=== PATIENT | female | born 1990 | race Two or more races ===

== ENCOUNTER → 2016-11-16 | Outpatient (CLI) | payer BC ==
[~2016-11-16] MED LIST: Iopamidol 612 MG/ML 50 ML SDV IUTERINE STA
--- NOTE | 2016-11-16 14:39 | US ---
EXAMINATION: Hysterosalpingogram. HISTORY: Infertility. Evaluate for tubal patency. PROCEDURE/FINDINGS: Written informed consent was obtained from the patient. Perineum was prepped wit h Betadine and after placement of vaginal speculum, the cervix was prepped with Betadine. A 5 Maltese catheter was placed and after inflation of the balloon, 10 cc of contrast was injected until cornua l regions are filled and multiple views of the pelvis are obtained. The uterine cavity is normal in configuration. No suspicious filling defects are seen. The right and left fallopian tubes are patent and spillage of contrast is noted into peritoneal cavi ty bilaterally. IMPRESSION: Patent fallopian tubes bilaterally.
== END | disposition home or self-care (01) ==
LOC: MW.DI 13:07
PROVIDERS: ATTEND Obstetrics & Gynecology
DX: Z31.49 Encounter for other procreative investigation and testing (principal)
CPT/HCPCS: 58340; 74740; Q9967

== ENCOUNTER 2017-09-30 11:13 | Inpatient (IN) | payer BC ==
[2017-09-30] MEDS ORDERED: Sodium Chloride 0.9% 10 ML Syringe FLUSH PRN (12:35)
[2017-09-30] MEDS ORDERED: Methylergonovine 0.2 MG/1 ML Amp IM PRN (12:35)
[2017-09-30] MEDS ORDERED: Water For Irrigation,Sterile 1,000 ML Container IRR PRN (12:35)
[2017-09-30] MEDS ORDERED: Carboprost Tromethamine 250 MCG/1 ML Amp IM PRN ×2 (12:35→23:06)
[2017-09-30] MEDS ORDERED: Misoprostol 200 MCG Tab PO PRN (12:35)
[2017-09-30] MEDS ORDERED: Lidocaine 1% 50 ML MDV INJECT PRN (12:35)
[2017-09-30] MEDS ORDERED: Sodium Chloride 0.9% 2.5 ML Syringe FLUSH PRN (12:35)
[2017-09-30] MEDS ORDERED: Magnesium Sulfate/Water 4 GM in Premix Bag 1 BAG IV ONE (12:41)
[2017-09-30] MEDS ORDERED: Calcium Gluconate 10% 1 GM/10 ML SDV IV PRN (12:41)
[2017-09-30] MEDS ORDERED: Oxytocin/0.9 % Sodium Chloride 30 UNIT/500 ML BAG IV SCH ×2 (12:45→13:00)
[2017-09-30] MEDS ORDERED: Magnesium Sulfate/Water 40 GM/1,000 ML BAG IV SCH (12:45)
[2017-09-30] MEDS: Lactated Ringers 1,000 ML IV SCH ×2 (12:45→15:36)
[2017-09-30] MEDS ORDERED: Terbutaline 1 MG/ML SDV SUBCUT PRN (12:49)
[2017-09-30 13:26] LABS: CHLORIDE,CL 106 mmol/L (98-110); SODIUM,NA 135 mmol/L (136-146)
[2017-09-30] MEDS ORDERED: Ropivacaine 100 ML ONE (15:15)
[2017-09-30] MEDS ORDERED: fentaNYL 100 MCG/2 ML SDV ONE (15:15)
--- NOTE | 2017-09-30 15:48 | PCM.PREANE ---
Preanesthetic Assessment - Anesthesia/Transfusion/Family Hx Anesthesia History: No Prior Anesthesia Family History of Anesthesia Reaction: No Transfusion History: No Prior Transfusion(s) - Review of Systems General: No Symptoms Pulmonary: No Symptoms Cardiovascular: No Symptoms Gastrointestinal: No Symptoms Neurological: No Symptoms Other: Reports: None - Physical Assessment NPO Status Date: 09/30/17 NPO Status Time: 12:00 Height: 5 ft 4.75 in Weight: 216 lb 12.8 oz ASA Class: 2 Mental Status: Alert & Oriented x3 Airway Class: Mallampati = 2 Dentition: Reports: Normal Dentition Thyro-Mental Finger Breadths: 3 Mouth Opening Finger Breadths: 3 Lungs: Clear to Auscultation, Normal Respiratory Effort - Lab Values: Laboratory Last Values WBC 10.00 K/uL (4.0-11.0) 09/30/17 12:45 RBC 4.39 M/uL (4.30-5.90) 09/30/17 12:45 Hgb 14.2 g/dL (12.0-16.0) 09/30/17 12:45 Hct 40.0 % (36.0-46.0) 09/30/17 12:45 MCV 91.1 fL (80.0-98.0) 09/30/17 12:45 MCH 32.3 pg (27.0-32.0) H 09/30/17 12:45 MCHC 35.5 g/dL (31.0-37.0) 09/30/17 12:45 RDW Std Deviation 44.2 fl (28.0-62.0) 09/30/17 12:45 RDW Coeff of Tessa 14 % (11.0-15.0) 09/30/17 12:45 Plt Count 165 K/uL (150-400) 09/30/17 12:45 MPV 10.60 fL (7.40-12.00) 09/30/17 12:45 Nucleated RBC % 0.0 /100WBC 09/30/17 12:45 Nucleated RBCs # 0 K/uL 09/30/17 12:45 Sodium 135 mmol/L (136-146) L 09/30/17 12:45 Potassium 4.2 mmol/L (3.5-5.1) 09/30/17 12:45 Chloride 106 mmol/L (98-110) 09/30/17 12:45 Carbon Dioxide 18 mmol/L (21-31) L 09/30/17 12:45 BUN 12 mg/dL (6.0-23.0) 09/30/17 12:45 Creatinine 0.8 mg/dL (0.6-1.5) 09/30/17 12:45 Est Cr Clr Drug Dosing 94.09 mL/min 09/30/17 12:45 Estimated GFR (MDRD) > 60.0 ml/min 09/30/17 12:45 Glucose 105 mg/dL (60-110) 09/30/17 12:45 Uric Acid 6.6 mg/dL (2.1-6.2) H 09/30/17 12:45 Calcium 9.2 mg/dL (8.8-10.8) 09/30/17 12:45 Total Bilirubin 0.3 mg/dL (0.1-1.5) 09/30/17 12:45 AST 17 IU/L (5-40) 09/30/17 12:45 ALT 13 IU/L (8-54) 09/30/17 12:45 Alkaline Phosphatase 125 (40-150) 09/30/17 12:45 Total Protein 6.2 g/dL (6.0-8.0) 09/30/17 12:45 Albumin 3.6 g/dL (3.5-5.0) 09/30/17 12:45 Globulin 2.6 g/dL (2.0-3.5) 09/30/17 12:45 Albumin/Globulin Ratio 1.4 (1.3-2.8) 09/30/17 12:45 Blood Type O POSITIVE 09/30/17 12:45 Antibody Screen NEGATIVE 09/30/17 12:45 - Allergies Allergies/Adverse Reactions: Allergies Allergy/AdvReac Type Severity Reaction Status Date / Time No Known Allergies Allergy Verified 10/28/14 14:39 - Acknowledgements Anesthesia Type Planned: Epidural Pt an Appropriate Candidate for the Planned Anesthesia: Yes Alternatives and Risks of Anesthesia Discussed w Pt/Guardian: Yes Pt/Guardian Understands and Agrees with Anesthesia Plan: Yes Additional Comments: obtained informed consent, used sterile technique, see anesthesia record PreAnesthesia Questionnaire - Past Health History Medical/Surgical History: Denies Medical/Surgical History Cardiovascular History: Reports: Hypertension Genitourinary History: Reports: STD 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 [No Known Home Meds] 10/28/14 [History] - CURRENT (IN HOUSE) MEDS Current Meds: Current Medications Calcium Gluconate (Calcium Gluconate) 1 gm IV ASDIRECTED PRN PRN Reason: respiratory distress Carboprost Tromethamine (Hemabate Ds) 250 mcg IM ASDIRECTED PRN PRN Reason: Post Hemorrhage Oxytocin/Sodium Chloride (Oxytocin 30 Unit/500 Ml-Ns) 30 unit in 500 mls @ 999 mls/hr IV TITRATE KIM Magnesium Sulfate (Magnesium Sulfate 40 Gm In Water 1000 Ml) 40 gm in 1,000 mls @ 25 mls/hr IV ASDIRECTED KIM; 1 GM/HR PRN Reason: Protocol Last Admin: 09/30/17 13:57 Dose: 1 gm/hr, 25 mls/hr Oxytocin/Sodium Chloride (Oxytocin 30 Unit/500 Ml-Ns) 30 unit in 500 mls @ 2 mls/hr IV TITRATE KIM; 2 MUNITS/MIN PRN Reason: Protocol Last Titration: 09/30/17 14:39 Dose: 4 munits/min, 4 mls/hr Lactated Ringer's (Ringers, Lactated) 1,000 mls @ 10 mls/hr IV ASDIRECTED KIM Last Admin: 09/30/17 15:36 Dose: 50 mls/hr Lidocaine HCl (Xylocaine 1%) 50 ml INJECT .ONCE PRN PRN Reason: Laceration repair Methylergonovine Maleate (Methergine) 0.2 mg IM ASDIRECTED PRN PRN Reason: Post Hemorrhage Misoprostol (Cytotec) 200 mcg PO .ONCE PRN PRN Reason: Post Hemorrhage Sodium Chloride (Saline Flush) 10 ml FLUSH ASDIRECTED PRN PRN Reason: Keep Vein Open Sodium Chloride (Saline Flush) 2.5 ml FLUSH ASDIRECTED PRN PRN Reason: Keep Vein Open Sterile Water (Sterile Water For Irrigation) 1,000 ml IRR ASDIRECTED PRN PRN Reason: delivery Terbutaline Sulfate (Brethine) 0.25 mg SUBCUT ASDIRECTED PRN PRN Reason: Tacysystole Discontinued Medications Fentanyl (Sublimaze) Confirm Administered Dose 100 mcg .ROUTE .STK-MED ONE Stop: 09/30/17 15:16 Magnesium Sulfate 4 gm/ Premix 100 mls @ 300 mls/hr IV .BOLUS ONE Stop: 09/30/17 13:00 Last Admin: 09/30/17 13:33 Dose: 300 mls/hr Ropivacaine (Naropin 0.2%) Confirm Administered Dose 100 mls @ as directed .ROUTE .STK-MED ONE Stop: 09/30/17 15:16
[2017-09-30] MEDS ORDERED: Acetaminophen 500 MG Tab ONE (22:56)
[2017-09-30] MEDS ORDERED: Ondansetron 4 MG/2 ML SDV IVPUSH PRN (23:00)
[2017-09-30] MEDS ORDERED: Ondansetron 4 MG/2 ML SDV ONE (23:03)
[2017-09-30] MEDS: Acetaminophen 500 MG Tab PO PRN (23:05)
[2017-09-30] MEDS ORDERED: oxyCODONE 5 MG Tab PO PRN (23:06)
[2017-09-30] MEDS ORDERED: Docusate Sodium 100 MG Cap PO PRN (23:06)
[2017-09-30] MEDS ORDERED: Lanolin 100% Cream 7 GM Tube TOP PRN (23:06)
[2017-09-30] MEDS ORDERED: Ibuprofen 800 MG Tab PO PRN (23:06)
[2017-09-30] MEDS ORDERED: Witch Hazel Medicated Pads 40/Jar TOP PRN (23:06)
[2017-09-30] MEDS ORDERED: Bisacodyl 10 MG Supp RECTAL PRN (23:06)
[2017-09-30] MEDS ORDERED: Benzocaine/Menthol 20%-0.5% Spray 78 GM Cannister TOP PRN (23:06)
[2017-10-01] MEDS ORDERED: Ondansetron 4 MG/2 ML SDV ONE (03:40)
[2017-10-01] MEDS: Acetaminophen 500 MG Tab PO PRN (03:48)
--- NOTE | 2017-10-01 05:02 | OR ---
SURGEON: Rylie Park M.D. DATE OF PROCEDURE: 09/30/2017 PREOPERATIVE DIAGNOSIS: Thirty nine week intrauterine , mild preeclampsia. POSTOPERATIVE DIAGNOSIS: Thirty nine week intrauterine , mild preeclampsia. PROCEDURE: Magnesium for seizure prophylaxis, Pitocin induction of labor, term spontaneous vaginal delivery, repair of left vaginal laceration. ANESTHESIA: Epidural. ESTIMATED BLOOD LOSS: Less than 300 mL. FINDINGS: Live born male, score are 9 and 9, weight is pending at the time of dictation. Placenta spontaneous, Schultze intact, with 3 vessels. There was a left vaginal laceration that was repaired. COMPLICATIONS: None known. DISPOSITION: Mother and baby are in LDRP in good condition. BRIEF INDICATION: This is a 26-year-old female, she is G1, P0. She presents at 39 weeks' gestation. Initially in the clinic, she was noted to have borderline blood pressures as well as 3+ protein on urinalysis. Her uric acid was elevated. Her other preeclamptic labs were normal. She presented to Labor and delivery initially at 3 cm dilatation for induction of labor. She was started on magnesium for seizure prophylaxis as well as Pitocin. Artificial rupture of membranes was performed. White meconium was noted and she received an epidural for pain control. Intrauterine pressure catheter was placed and she progressed to complete. DESCRIPTION OF PROCEDURE: With the patient in dorsal lithotomy position, she pushed over a 45-minute time period to a 5+ station, at which time the head was delivered spontaneously and atraumatically over the perineum with support. The was deep suctioned by nose and mouth and the remainder of the infant's body was delivered without difficulty and the was handed to the mother in the presence of the nurse attending delivery. The was a liveborn male, scores are 9 and 9. Weight is pending at the time of dictation. After the cord had ceased to pulsate, it was doubly clamped and cut. Cord blood was collected for cord ABGs as well as routine cord blood sampling. Pitocin was initiated after delivery the to assist with delivery of the placenta which was delivered spontaneously, Schultze intact with 3 vessels. Upon inspection the pelvis and perineum, there were no periurethral, cervical, rectal, or perineal lacerations. There was a left vaginal sidewall laceration that was repaired using a running lock suture of 2-0 Caprosyn. Initially, there was a moderate to heavy flow, but with fundal massage and Pitocin, the flow diminished to minimal, therefore she did not receive Hemabate, however was in the room and ready. Final sponge, needle, and instrument counts were reported as correct. There were no known complications. Mother and baby are in LDRP in good condition. GEORGE ZACARIAS /[id number]
--- NOTE | 2017-10-01 08:33 | PCM48HPAN ---
Post Anesthesia Note - EVALUATION WITHIN 48HRS OF ANESTHETIC Vital Signs in Normal Range: Yes Patient Participated in Evaluation: Yes Respiratory Function Stable: Yes Airway Patent: Yes Cardiovascular Function Stable: Yes Hydration Status Stable: Yes Pain Control Satisfactory: Yes Nausea and Vomiting Control Satisfactory: Yes Mental Status Recovered: Yes
--- NOTE | 2017-10-01 09:38 | PCM.PNPP ---
- General Info Functional Status: Reports: Pain Controlled, Tolerating Diet, Ambulating, Urinating, Other ( well denies headache or visual changes,) - Review of Systems General: Reports: No Symptoms HEENT: Reports: No Symptoms Pulmonary: Reports: No Symptoms Cardiovascular: Reports: No Symptoms Gastrointestinal: Reports: No Symptoms Genitourinary: Reports: No Symptoms Musculoskeletal: Reports: No Symptoms Skin: Reports: No Symptoms Neurological: Reports: No Symptoms Psychiatric: Reports: No Symptoms - Patient Data Vital Signs - Most Recent: Last Vital Signs Temp 36.6 C 10/01/17 04:47 Pulse 90 10/01/17 08:00 Resp 14 10/01/17 08:00 BP 110/64 10/01/17 08:00 Pulse Ox 98 10/01/17 08:00 Weight - Most Recent: 98.339 kg Lab Results - Last 24 Hours: Laboratory Results - last 24 hr 09/30/17 09/30/17 09/30/17 Range/Units 12:45 12:45 12:45 WBC 10.00 (4.0-11.0) K/uL RBC 4.39 (4.30-5.90) M/uL Hgb 14.2 (12.0-16.0) g/dL Hct 40.0 (36.0-46.0) % MCV 91.1 (80.0-98.0) fL MCH 32.3 H (27.0-32.0) pg MCHC 35.5 (31.0-37.0) g/dL RDW Std Deviation 44.2 (28.0-62.0) fl RDW Coeff of Tessa 14 (11.0-15.0) % Plt Count 165 (150-400) K/uL MPV 10.60 (7.40-12.00) fL Nucleated RBC % 0.0 /100WBC Nucleated RBCs # 0 K/uL Sodium 135 L (136-146) mmol/L Potassium 4.2 (3.5-5.1) mmol/L Chloride 106 (98-110) mmol/L Carbon Dioxide 18 L (21-31) mmol/L BUN 12 (6.0-23.0) mg/dL Creatinine 0.8 (0.6-1.5) mg/dL Est Cr Clr Drug Dosing 94.09 mL/min Estimated GFR (MDRD) > 60.0 ml/min Glucose 105 (60-110) mg/dL Uric Acid 6.6 H (2.1-6.2) mg/dL Calcium 9.2 (8.8-10.8) mg/dL Magnesium (1.5-2.3) mEq/L Total Bilirubin 0.3 (0.1-1.5) mg/dL AST 17 (5-40) IU/L ALT 13 (8-54) IU/L Alkaline Phosphatase 125 (40-150) Total Protein 6.2 (6.0-8.0) g/dL Albumin 3.6 (3.5-5.0) g/dL Globulin 2.6 (2.0-3.5) g/dL Albumin/Globulin Ratio 1.4 (1.3-2.8) Blood Type O POSITIVE Antibody Screen NEGATIVE 09/30/17 10/01/17 10/01/17 Range/Units 18:21 00:20 05:58 WBC (4.0-11.0) K/uL RBC (4.30-5.90) M/uL Hgb (12.0-16.0) g/dL Hct (36.0-46.0) % MCV (80.0-98.0) fL MCH (27.0-32.0) pg MCHC (31.0-37.0) g/dL RDW Std Deviation (28.0-62.0) fl RDW Coeff of Tessa (11.0-15.0) % Plt Count (150-400) K/uL MPV (7.40-12.00) fL Nucleated RBC % /100WBC Nucleated RBCs # K/uL Sodium (136-146) mmol/L Potassium (3.5-5.1) mmol/L Chloride (98-110) mmol/L Carbon Dioxide (21-31) mmol/L BUN (6.0-23.0) mg/dL Creatinine (0.6-1.5) mg/dL Est Cr Clr Drug Dosing mL/min Estimated GFR (MDRD) ml/min Glucose (60-110) mg/dL Uric Acid (2.1-6.2) mg/dL Calcium (8.8-10.8) mg/dL Magnesium 2.9 H 4.4 H 4.3 H (1.5-2.3) mEq/L Total Bilirubin (0.1-1.5) mg/dL AST (5-40) IU/L ALT (8-54) IU/L Alkaline Phosphatase (40-150) Total Protein (6.0-8.0) g/dL Albumin (3.5-5.0) g/dL Globulin (2.0-3.5) g/dL Albumin/Globulin Ratio (1.3-2.8) Blood Type Antibody Screen 10/01/17 Range/Units 05:58 WBC (4.0-11.0) K/uL RBC (4.30-5.90) M/uL Hgb 12.3 (12.0-16.0) g/dL Hct 35.5 L (36.0-46.0) % MCV (80.0-98.0) fL MCH (27.0-32.0) pg MCHC (31.0-37.0) g/dL RDW Std Deviation (28.0-62.0) fl RDW Coeff of Tessa (11.0-15.0) % Plt Count (150-400) K/uL MPV (7.40-12.00) fL Nucleated RBC % /100WBC Nucleated RBCs # K/uL Sodium (136-146) mmol/L Potassium (3.5-5.1) mmol/L Chloride (98-110) mmol/L Carbon Dioxide (21-31) mmol/L BUN (6.0-23.0) mg/dL Creatinine (0.6-1.5) mg/dL Est Cr Clr Drug Dosing mL/min Estimated GFR (MDRD) ml/min Glucose (60-110) mg/dL Uric Acid (2.1-6.2) mg/dL Calcium (8.8-10.8) mg/dL Magnesium (1.5-2.3) mEq/L Total Bilirubin (0.1-1.5) mg/dL AST (5-40) IU/L ALT (8-54) IU/L Alkaline Phosphatase (40-150) Total Protein (6.0-8.0) g/dL Albumin (3.5-5.0) g/dL Globulin (2.0-3.5) g/dL Albumin/Globulin Ratio (1.3-2.8) Blood Type Antibody Screen Med Orders - Current: Current Medications Acetaminophen (Tylenol Extra Strength) 1,000 mg PO Q4H PRN PRN Reason: Pain Last Admin: 10/01/17 03:48 Dose: 1,000 mg Benzocaine/Menthol (Dermoplast Pain Relief 20%-0.5% Sunspot) 78 gm TOP ASDIRECTED PRN PRN Reason: Perineal Comfort Measure Last Admin: 10/01/17 03:49 Dose: 78 gm Bisacodyl (Dulcolax) 10 mg RECTAL .ONCE PRN PRN Reason: Constipation Calcium Gluconate (Calcium Gluconate) 1 gm IV ASDIRECTED PRN PRN Reason: respiratory distress Carboprost Tromethamine (Hemabate Ds) 250 mcg IM ASDIRECTED PRN PRN Reason: Post Hemorrhage Carboprost Tromethamine (Hemabate Ds) 250 mcg IM ASDIRECTED PRN PRN Reason: Excessive vaginal bleeding Docusate Sodium (Colace) 100 mg PO BID PRN PRN Reason: Constipation Emollient Ointment (Lansinoh Hpa) 0 gm TOP ASDIRECTED PRN PRN Reason: Sore Nipples Oxytocin/Sodium Chloride (Oxytocin 30 Unit/500 Ml-Ns) 30 unit in 500 mls @ 999 mls/hr IV TITRATE KIM Magnesium Sulfate (Magnesium Sulfate 40 Gm In Water 1000 Ml) 40 gm in 1,000 mls @ 25 mls/hr IV ASDIRECTED KIM; 1 GM/HR PRN Reason: Protocol Last Titration: 09/30/17 18:13 Dose: 2 gm/hr, 50 mls/hr Oxytocin/Sodium Chloride (Oxytocin 30 Unit/500 Ml-Ns) 30 unit in 500 mls @ 2 mls/hr IV TITRATE KIM; 2 MUNITS/MIN PRN Reason: Protocol Last Titration: 09/30/17 18:10 Dose: 8 munits/min, 8 mls/hr Lactated Ringer's (Ringers, Lactated) 1,000 mls @ 10 mls/hr IV ASDIRECTED KIM Last Infusion: 09/30/17 18:13 Dose: 30 mls/hr Ibuprofen (Motrin) 800 mg PO Q6H PRN PRN Reason: Pain Last Admin: 10/01/17 03:48 Dose: 800 mg Lidocaine HCl (Xylocaine 1%) 50 ml INJECT .ONCE PRN PRN Reason: Laceration repair Methylergonovine Maleate (Methergine) 0.2 mg IM ASDIRECTED PRN PRN Reason: Post Hemorrhage Misoprostol (Cytotec) 200 mcg PO .ONCE PRN PRN Reason: Post Hemorrhage Ondansetron HCl (Zofran) 4 mg IVPUSH Q4H PRN PRN Reason: Nausea Last Admin: 10/01/17 04:10 Dose: 4 mg Oxycodone HCl (Oxycodone) 5 mg PO Q2H PRN PRN Reason: Pain Sodium Chloride (Saline Flush) 10 ml FLUSH ASDIRECTED PRN PRN Reason: Keep Vein Open Sodium Chloride (Saline Flush) 2.5 ml FLUSH ASDIRECTED PRN PRN Reason: Keep Vein Open Sterile Water (Sterile Water For Irrigation) 1,000 ml IRR ASDIRECTED PRN PRN Reason: delivery Last Admin: 10/01/17 01:20 Dose: 1,000 ml Terbutaline Sulfate (Brethine) 0.25 mg SUBCUT ASDIRECTED PRN PRN Reason: Tacysystole Witch Lanette (Tucks) 1 pad TOP ASDIRECTED PRN PRN Reason: comfort care Discontinued Medications Acetaminophen (Tylenol Extra Strength) Confirm Administered Dose 1,000 mg .ROUTE .STK-MED ONE Stop: 09/30/17 22:57 Fentanyl (Sublimaze) Confirm Administered Dose 100 mcg .ROUTE .STK-MED ONE Stop: 09/30/17 15:16 Magnesium Sulfate 4 gm/ Premix 100 mls @ 300 mls/hr IV .BOLUS ONE Stop: 09/30/17 13:00 Last Admin: 09/30/17 13:33 Dose: 300 mls/hr Ropivacaine (Naropin 0.2%) Confirm Administered Dose 100 mls @ as directed .ROUTE .STK-MED ONE Stop: 09/30/17 15:16 Ondansetron HCl (Zofran) Confirm Administered Dose 4 mg .ROUTE .STK-MED ONE Stop: 09/30/17 23:04 Last Admin: 09/30/17 23:00 Dose: 4 mg Ondansetron HCl (Zofran) Confirm Administered Dose 4 mg .ROUTE .STK-MED ONE Stop: 10/01/17 03:41 - Infant Interaction Disposition, : [place] in Room with Family Infant Interaction: Holding Feeding: Breastfed Infant; Nursed Well Support Person: Significant Other - Recovery Exam Fundal Level: 2 Fingerbreadths Below Umbilicus Fundal Placement: Right Lochia Amount: Small Lochia Color: Rubra/Red - Exam General: Alert, Oriented HEENT: Pupils Equal Neck: Supple Lungs: Clear to Auscultation, Normal Respiratory Effort Cardiovascular: Regular Rate, Regular Rhythm GI/Abdominal Exam: Normal Bowel Sounds, Soft, Non-Tender, No Distention, No Mass Extremities: Normal Inspection, Non-Tender. No: No Pedal Edema (trace) Skin: Warm, Dry, Intact Neurological: No New Focal Deficit Psy/Mental Status: Alert, Normal Affect, Normal Mood - Problem List & Annotations (1) Gestational proteinuria, complicating childbirth SNOMED Code(s): 83231977 Code(s): O12.14 - GESTATIONAL PROTEINURIA, COMPLICATING CHILDBIRTH Status: Acute Current Visit: Yes - Problem List Review Problem List Initiated/Reviewed/Updated: Yes - My Orders Last 24 Hours: My Active Orders 09/30/17 23:00 Ondansetron [Zofran] 4 mg IVPUSH Q4H PRN 09/30/17 23:06 Patient Status [ADT] Routine Acetaminophen [Tylenol Extra Strength] 1,000 mg PO Q4H PRN Benzocaine/Menthol [Dermoplast Pain Relief 20%-0.5% Sunspot] 78 gm TOP ASDIRECTED PRN Bisacodyl [Dulcolax] 10 mg RECTAL .ONCE PRN Carboprost Tromethamine [Hemabate DS] 250 mcg IM ASDIRECTED PRN Docusate Sodium [Colace] 100 mg PO BID PRN Ibuprofen [Motrin] 800 mg PO Q6H PRN Lanolin [Lansinoh HPA] See Dose Instructions TOP ASDIRECTED PRN Witch Lanette [Tucks] 1 pad TOP ASDIRECTED PRN oxyCODONE 5 mg PO Q2H PRN Assess Lochia [WOMSER] Per Unit Routine Assess Uterine Involution [WOMSER] Per Unit Routine Peripheral IV Discontinue [OM.PC] Routine 09/30/17 23:07 Perineal Care [OM.PC] Per Unit Routine - Assessment Assessment:: PPD#1 after , on magnesium, due to gestational proteinuria based on UA in the clinic, BP normal since arriving on L&D.; She is stable, denies any headaches or other symptosm. urine output approximately 100 ml per hour over past 12 hours. minimal lochia. well. - Plan Plan:: Discontinue magnesium, continue care, may eat, ambulate, shower, continue saline lock.
[2017-10-02 09:09] VITALS: BP 107/60
--- NOTE | 2017-10-02 09:35 | PCM.PNPP ---
- General Info Functional Status: Reports: Pain Controlled, Tolerating Diet, Ambulating, Urinating - Review of Systems General: Reports: No Symptoms HEENT: Reports: No Symptoms Pulmonary: Reports: No Symptoms Cardiovascular: Reports: No Symptoms Gastrointestinal: Reports: No Symptoms Genitourinary: Reports: No Symptoms Musculoskeletal: Reports: No Symptoms Skin: Reports: No Symptoms Neurological: Reports: No Symptoms Psychiatric: Reports: No Symptoms - Patient Data Vital Signs - Most Recent: Last Vital Signs Temp 36.2 C 10/02/17 09:00 Pulse 68 10/02/17 09:00 Resp 15 10/02/17 09:00 BP 107/60 10/02/17 09:00 Pulse Ox 95 10/02/17 09:00 Weight - Most Recent: 98.339 kg Med Orders - Current: Current Medications Acetaminophen (Tylenol Extra Strength) 1,000 mg PO Q4H PRN PRN Reason: Pain Last Admin: 10/01/17 03:48 Dose: 1,000 mg Benzocaine/Menthol (Dermoplast Pain Relief 20%-0.5% [place]) 78 gm TOP ASDIRECTED PRN PRN Reason: Perineal Comfort Measure Last Admin: 10/01/17 03:49 Dose: 78 gm Bisacodyl (Dulcolax) 10 mg RECTAL .ONCE PRN PRN Reason: Constipation Calcium Gluconate (Calcium Gluconate) 1 gm IV ASDIRECTED PRN PRN Reason: respiratory distress Carboprost Tromethamine (Hemabate Ds) 250 mcg IM ASDIRECTED PRN PRN Reason: Post Hemorrhage Carboprost Tromethamine (Hemabate Ds) 250 mcg IM ASDIRECTED PRN PRN Reason: Excessive vaginal bleeding Docusate Sodium (Colace) 100 mg PO BID PRN PRN Reason: Constipation Emollient Ointment (Lansinoh Hpa) 0 gm TOP ASDIRECTED PRN PRN Reason: Sore Nipples Last Admin: 10/01/17 16:28 Dose: 1 tube Oxytocin/Sodium Chloride (Oxytocin 30 Unit/500 Ml-Ns) 30 unit in 500 mls @ 999 mls/hr IV TITRATE KIM Magnesium Sulfate (Magnesium Sulfate 40 Gm In Water 1000 Ml) 40 gm in 1,000 mls @ 25 mls/hr IV ASDIRECTED KIM; 1 GM/HR PRN Reason: Protocol Last Titration: 01/12/18 18:13 Dose: 2 gm/hr, 50 mls/hr Oxytocin/Sodium Chloride (Oxytocin 30 Unit/500 Ml-Ns) 30 unit in 500 mls @ 2 mls/hr IV TITRATE KIM; 2 MUNITS/MIN PRN Reason: Protocol Last Titration: 09/30/17 18:10 Dose: 8 munits/min, 8 mls/hr Lactated Ringer's (Ringers, Lactated) 1,000 mls @ 10 mls/hr IV ASDIRECTED KIM Last Infusion: 09/30/17 18:13 Dose: 30 mls/hr Ibuprofen (Motrin) 800 mg PO Q6H PRN PRN Reason: Pain Last Admin: 10/01/17 03:48 Dose: 800 mg Lidocaine HCl (Xylocaine 1%) 50 ml INJECT .ONCE PRN PRN Reason: Laceration repair Methylergonovine Maleate (Methergine) 0.2 mg IM ASDIRECTED PRN PRN Reason: Post Hemorrhage Misoprostol (Cytotec) 200 mcg PO .ONCE PRN PRN Reason: Post Hemorrhage Ondansetron HCl (Zofran) 4 mg IVPUSH Q4H PRN PRN Reason: Nausea Last Admin: 10/01/17 04:10 Dose: 4 mg Oxycodone HCl (Oxycodone) 5 mg PO Q2H PRN PRN Reason: Pain Sodium Chloride (Saline Flush) 10 ml FLUSH ASDIRECTED PRN PRN Reason: Keep Vein Open Sodium Chloride (Saline Flush) 2.5 ml FLUSH ASDIRECTED PRN PRN Reason: Keep Vein Open Sterile Water (Sterile Water For Irrigation) 1,000 ml IRR ASDIRECTED PRN PRN Reason: delivery Last Admin: 10/01/17 01:20 Dose: 1,000 ml Terbutaline Sulfate (Brethine) 0.25 mg SUBCUT ASDIRECTED PRN PRN Reason: Tacysystole Witch Lanette (Tucks) 1 pad TOP ASDIRECTED PRN PRN Reason: comfort care Discontinued Medications Acetaminophen (Tylenol Extra Strength) Confirm Administered Dose 1,000 mg .ROUTE .STK-MED ONE Stop: 09/30/17 22:57 Fentanyl (Sublimaze) Confirm Administered Dose 100 mcg .ROUTE .STK-MED ONE Stop: 09/30/17 15:16 Magnesium Sulfate 4 gm/ Premix 100 mls @ 300 mls/hr IV .BOLUS ONE Stop: 09/30/17 13:00 Last Admin: 09/30/17 13:33 Dose: 300 mls/hr Ropivacaine (Naropin 0.2%) Confirm Administered Dose 100 mls @ as directed .ROUTE .STK-MED ONE Stop: 09/30/17 15:16 Ondansetron HCl (Zofran) Confirm Administered Dose 4 mg .ROUTE .STK-MED ONE Stop: 09/30/17 23:04 Last Admin: 09/30/17 23:00 Dose: 4 mg Ondansetron HCl (Zofran) Confirm Administered Dose 4 mg .ROUTE .STK-MED ONE Stop: 10/01/17 03:41 - Infant Interaction Infant Disposition, : in Room with Family Infant Interaction: Holding Infant Infant Feeding: Breastfed ; Nursed Well Support Person: Significant Other - Recovery Exam Fundal Tone: Firm Fundal Level: 2 Fingerbreadths Below Umbilicus Fundal Placement: Midline Lochia Amount: Scant Lochia Color: Rubra/Red Perineum Description: Intact, Minimal Bruising/Swelling Episiotomy/Laceration: None Bladder Status: Voiding Urinary Elimination: Voided - Exam General: Alert, Oriented HEENT: Pupils Equal Neck: Supple Lungs: Normal Respiratory Effort GI/Abdominal Exam: Soft, Non-Tender, No Organomegaly, No Distention Extremities: Normal Inspection, Normal Range of Motion, Non-Tender, No Pedal Edema, Normal Capillary Refill Skin: Warm, Dry, Intact Neurological: No New Focal Deficit Psy/Mental Status: Alert, Normal Affect, Normal Mood - Problem List & Annotations (1) Gestational proteinuria, complicating childbirth SNOMED Code(s): 69855187 Code(s): O12.14 - GESTATIONAL PROTEINURIA, COMPLICATING CHILDBIRTH Status: Acute Current Visit: Yes (2) Vaginal delivery SNOMED Code(s): 724329509 Code(s): O80 - ENCOUNTER FOR FULL-TERM UNCOMPLICATED DELIVERY Status: Acute Current Visit: Yes - Problem List Review Problem List Initiated/Reviewed/Updated: Yes - Assessment Assessment:: PPD#2 after , induced, due to gestational proteinuria based on UA in the clinic, All BP have been normal since delivery, minimal lochia. well. Would like to go home today. - Plan Plan:: Dismiss to home today, continue Zoloft per psychiatrist, discussed depression precautions, discussed routine discharge precautions.
== END 2017-10-02 11:20 | disposition home or self-care (01) | DRG 560 ==
LOC: MW.OBCHECK 11:13 → MW.OB 11:15 → OBSVTOIN 22:27 → MW.OB 10-01 07:43
PROVIDERS: ADMIT Obstetrics & Gynecology; ATTEND Obstetrics & Gynecology
PROC: 10E0XZZ Delivery of Products of Conception, External Approach (ICD-10-PCS; principal; 2017-09-30)
PROC: 0KQM0ZZ Repair Perineum Muscle, Open Approach (ICD-10-PCS; 2017-09-30)
DX: O12.14 Gestational proteinuria, complicating childbirth (principal); O14.04 Mild to moderate pre-eclampsia, complicating childbirth; O70.1 Second degree perineal laceration during delivery; Z3A.39 39 weeks gestation of pregnancy; Z37.0 Single live birth
CPT/HCPCS: 36415; 51702; 59025; 59409; 80053; 83735; 84550; 85014; 85018; 85027; 86850; 86900; 86901; A9270-GY; J2405; J2590; J3475; J7120

== ENCOUNTER 2022-02-05 06:40 | Day surgery (SDC) | payer BC ==
[~2022-02-05 06:40] MED LIST changes: -Iopamidol 612 MG/ML 50 ML SDV IUTERINE STA; +Lactated Ringers 1,000 ML IV SCH; +ceFAZolin 2 GM in Premix Bag 1 BAG IV ONE
[2022-02-05] MEDS ORDERED: propofoL 100 ML ONE (07:21)
[2022-02-05] MEDS ORDERED: Midazolam 1 MG/ML 2 ML SDV ONE (07:21)
[2022-02-05] MEDS ORDERED: Water For Injection, Sterile 20 ML ONE (07:23)
[2022-02-05] MEDS ORDERED: Dexmedetomidine 200 MCG/2 ML SDV ONE (07:23)
[2022-02-05] MEDS ORDERED: Bupivacaine 0.5% 30 ML SDV ONE (07:26)
[2022-02-05] MEDS ORDERED: Ropivacaine/Ketorolac/Ketamine 100-15-30/50 ML Syringe INJECT ONE (07:27)
[2022-02-05] MEDS ORDERED: Naloxone 0.4 MG/ML SDV IVPUSH PRN (07:28)
[2022-02-05] MEDS ORDERED: Albuterol 0.083% 2.5 MG/3 ML Neb Soln NEB PRN (07:28)
[2022-02-05] MEDS ORDERED: Ondansetron 4 MG/2 ML SDV IVPUSH PRN (07:28)
[2022-02-05] MEDS ORDERED: Metoclopramide 10 MG/2 ML SDV IVPUSH PRN (07:28)
[2022-02-05] MEDS ORDERED: HYDROmorphone 1 MG/ML Syringe IVPUSH PRN (07:28)
[2022-02-05] MEDS ORDERED: fentaNYL 100 MCG/2 ML SDV IVPUSH PRN (07:28)
[2022-02-05] MEDS ORDERED: Dexamethasone 4 MG/ML 5 ML MDV ONE (08:11)
[2022-02-05] MEDS ORDERED: Ondansetron 4 MG/2 ML SDV ONE (08:38)
[2022-02-05] MEDS ORDERED: ePHEDrine 50 MG/ML SDV ONE (08:40)
[2022-02-05] MEDS ORDERED: Lactated Ringers 1,000 ML IV SCH (09:00)
[2022-02-05] MEDS ORDERED: Acetaminophen/HYDROcodone 325-5 MG Tab PO PRN (09:00)
[2022-02-05] MEDS ORDERED: Morphine 4 MG/ML VIAL IVPUSH PRN (09:00)
[2022-02-05 10:03] VITALS: BP 101/60; PULSE 62
== END 2022-02-05 10:32 | disposition home or self-care (01) ==
LOC: MW.SDS 06:40
PROVIDERS: ATTEND Surgery
DX: K43.6 Other and unspecified ventral hernia with obstruction, without gangrene (principal); Z78.9 Other specified health status; Z98.890 Other specified postprocedural states; Z79.899 Other long term (current) drug therapy; Z87.891 Personal history of nicotine dependence
CPT/HCPCS: 49561; 81025; J0131; J1100; J2250; J2370; J2405; J2704; J3490; J7120

== ENCOUNTER 2025-03-09 16:09 | Emergency (ER) | payer BC ==
[2025-03-09 16:34] VITALS: BP 125/92; PULSE 87
[2025-03-09 17:25] LABS: BASOPHILS ABSOLUTE AUTO 0.04 K/uL (0.00-0.20); BASOPHILS PERCENT AUTO 0.4 % (0.0-1.0); EOSINOPHILS ABSOLUTE AUTO 0.12 K/uL (0.00-0.45); EOSINOPHILS PERCENT AUTO 1.3 % (0.0-6.0); HEMATOCRIT 38.4 % (37.0-47.0); HEMOGLOBIN 13.4 g/dL (12.0-16.0); IMMATURE GRAN ABSOLUTE AUTO 0.02 K/uL (0.00-0.05); IMMATURE GRAN PERCENT AUTO 0.2 % (0.0-0.4); LYMPHOCYTES ABSOLUTE AUTO 2.47 K/uL (1.00-4.80); LYMPHOCYTES PERCENT AUTO 27.1 % (24.0-44.0); MEAN CORPUSCULAR HEMOGLOBIN 30.7 pg (28.0-32.0); MEAN CORPUSCULAR HGB CONC 34.9 g/dL (32.0-36.0); MEAN CORPUSCULAR VOLUME 87.9 fL (83.0-99.0); MEAN PLATELET VOLUME 8.6 fL (9.4-12.3); MONOCYTES ABSOLUTE AUTO 0.47 K/uL (0.00-0.80); MONOCYTES PERCENT AUTO 5.2 % (0.0-8.0); NEUTROPHILS PERCENT AUTO 65.8 % (41.0-71.0); PLATELET COUNT,PLT 239 K/uL (150-400); RED BLOOD CELL COUNT 4.37 M/uL (4.10-5.30); WHITE BLOOD CELL COUNT,WBC 9.12 K/uL (3.9-11.3)
[2025-03-09 18:08] LABS: A/G RATIO 1.1 (0.9-1.6); ALBUMIN 3.6 g/dL (3.4-5.0); BILIRUBIN TOTAL 0.3 mg/dL (0.2-1.0); CALCIUM 9.1 mg/dL (8.5-10.1); CARBON DIOXIDE,CO2 27.3 mmol/L (21.0-32.0); CREATININE 0.8 mg/dL (0.6-1.0); EST CRCL DRUG DOSING (CG) 84.76 mL/min; POTASSIUM,K 3.7 mmol/L (3.5-5.1); PROTEIN TOTAL,TP 6.8 g/dL (6.4-8.2)
== END 2025-03-09 19:24 | disposition home or self-care (01) ==
LOC: MW.ED 16:09
DX: O03.4 Incomplete spontaneous abortion without complication (principal); Z79.899 Other long term (current) drug therapy
CPT/HCPCS: 36415; 76817; 76817-26; 80053; 84702; 85025; 99283; 99284

== ENCOUNTER 2025-03-18 08:44 | Day surgery (SDC) | payer BC ==
[~2025-03-18 08:44] MED LIST changes: +Albuterol 0.083% 2.5 MG/3 ML Neb Soln NEB PRN; +HYDROmorphone 1 MG/ML Syringe IVPUSH PRN; -Lactated Ringers 1,000 ML IV SCH; +Metoclopramide 10 MG/2 ML SDV IVPUSH PRN; +Morphine 2 MG/ML SYRINGE IVPUSH PRN; +Naloxone 0.4 MG/ML SDV IVPUSH PRN; +Ondansetron 4 MG/2 ML SDV IVPUSH PRN; +Phenylephrine HCl In 0.9% NaCl 1 MG/10 ML Syringe IVPUSH PRN; -ceFAZolin 2 GM in Premix Bag 1 BAG IV ONE; +fentaNYL 50 MCG/ML SDV IVPUSH PRN
[2025-03-18] MEDS ORDERED: Propofol 200 MG/20 ML SDV ONE (09:13)
[2025-03-18] MEDS ORDERED: Midazolam 1 MG/ML 2 ML SDV ONE (09:13)
[2025-03-18] MEDS ORDERED: fentaNYL 100 MCG/2 ML SDV ONE ×2 (09:13→09:42)
[2025-03-18] MEDS ORDERED: Lidocaine 1% 5 ML VIAL ONE (09:15)
[2025-03-18] MEDS ORDERED: Ondansetron 4 MG/2 ML SDV ONE (09:15)
[2025-03-18] MEDS ORDERED: Dexamethasone 4 MG/ML 5 ML MDV ONE (09:15)
[2025-03-18] MEDS: Lactated Ringers 1,000 ML IV SCH (09:25)
[2025-03-18] MEDS ORDERED: Azithromycin 500 MG Vial ONE (09:45)
[2025-03-18] MEDS ORDERED: Methylergonovine 0.2 MG/1 ML Amp ONE (09:47)
[2025-03-18] MEDS ORDERED: Sodium Chloride 0.9% 250 ML ONE (09:48)
[2025-03-18] MEDS ORDERED: Phenylephrine HCl In 0.9% NaCl 1 MG/10 ML Syringe ONE (09:53)
[2025-03-18] MEDS ORDERED: Tranexamic Acid 1,000 MG/10 ML Vial ONE (09:57)
[2025-03-18 12:55] VITALS: BP 95/63; PULSE 69
== END 2025-03-18 11:47 | disposition home or self-care (01) ==
LOC: MW.SDS 08:44
PROVIDERS: ATTEND Obstetrics & Gynecology
DX: O03.4 Incomplete spontaneous abortion without complication (principal); Z79.899 Other long term (current) drug therapy
CPT/HCPCS: 59812; C1729; J0456; J1100; J2003; J2210; J2250; J2371; J2405; J2704; J3010; J7050; J7120; 01965

== ENCOUNTER → 2025-08-16 | Day surgery (SDC) | payer BC ==
[2025-08-15 10:09] LABS: MEAN PLATELET VOLUME 8.2 fL (9.4-12.3); NRBC ABSOLUTE 0.00 K/uL (0.00-0.02); NRBC PERCENT 0.0 /100WBC (0.0-0.2); PLATELET COUNT,PLT 286 K/uL (150-400); RED BLOOD CELL COUNT 4.35 M/uL (4.10-5.30); WHITE BLOOD CELL COUNT,WBC 8.65 K/uL (3.9-11.3)
[~2025-08-16] MED LIST changes: -HYDROmorphone 1 MG/ML Syringe IVPUSH PRN; +Ketorolac 30 MG/ML SDV ONE; -Metoclopramide 10 MG/2 ML SDV IVPUSH PRN; -Morphine 2 MG/ML SYRINGE IVPUSH PRN; +Ondansetron 4 MG/2 ML SDV ONE; -Phenylephrine HCl In 0.9% NaCl 1 MG/10 ML Syringe IVPUSH PRN; +Propofol 200 MG/20 ML SDV ONE; +dexmedeTOMIDine HCl 200 MCG/2 ML SDV ONE; +ePHEDrine 50 MG/ML SDV ONE; +fentaNYL 100 MCG/2 ML SDV ONE
[2025-08-16] MEDS: Lactated Ringers 1,000 ML IV SCH (11:07)
[2025-08-16 13:47] VITALS: BP 104/51; PULSE 80
== END | disposition home or self-care (01) ==
LOC: MW.SDS 10:36
PROVIDERS: ATTEND Obstetrics & Gynecology
DX: O02.1 Missed abortion (principal); Z79.899 Other long term (current) drug therapy
CPT/HCPCS: 36415; 59820; 84703; 85027; 86850; 86900; 86901; C1729; J1885; J2003; J2210; J2405; J2704; J3010; J7120; 01965; J3490